=== PATIENT | female | born 1975 | race African-American/Black ===

== ENCOUNTER 2018-03-19 21:03 | Emergency (ER) | payer BC ==
[~2018-03-19] VITALS: Ht 160 cm; Wt 61.1 kg
[2018-03-19 22:32] LABS: HEMATOCRIT 38.1 % (36.0-46.0); HEMOGLOBIN 12.9 G/DL (11.9-15.5); MCH 31.5 PG (29.0-34.0); MCHC 33.9 G/DL (30.0-36.0); MCV 93.2 FL (83-99); PLATELET COUNT 344 K/uL (156-360); RBC DIS.WIDTH-CV 12.1 % (11.8-14.6); RBC DIS.WIDTH-SD 41.4 % (39-53); RED BLOOD COUNT 4.09 M/uL (3.80-5.20)
[2018-03-19 22:47] LABS: CHLORIDE 106 mEq/L (99-109); POTASSIUM 3.9 mEq/L (3.7-5.4); SODIUM 136 mEq/L (136-147)
[2018-03-19 22:49] LABS: GLUCOSE 94 mg/dL (70-99)
[2018-03-19 22:53] LABS: CREATININE 0.8 mg/dL (0.6-1.3); GFR ESTIMATE (CALCULATED) > 59 mL/min/
[2018-03-19 22:54] LABS: UREA NITROGEN (BUN) 13 mg/dL (9-23)
[2018-03-19 23:01] LABS: QUANTITATIVE HCG < 4.0 MIU/ML
[2018-03-19 23:58] VITALS: BP 125/80
[2018-03-20 08:39] LABS: THYROTROPIN (TSH) 2.4 MIU/L (0.4-5.5)
== END 2018-03-19 23:59 | disposition home or self-care (01) ==
LOC: EME 21:03
PROVIDERS: Physician Assistant
DX: N92.6 Irregular menstruation, unspecified (principal); H40.9 Unspecified glaucoma; Z87.891 Personal history of nicotine dependence; Z98.51 Tubal ligation status
CPT/HCPCS: 80048; 84443; 84702; 85027; 99281; 99284